=== PATIENT | male | born 1930 | race Caucasian/White ===

== ENCOUNTER 2020-11-07 11:42 | Emergency (ER) | payer MEDICARE, BC ==
[~2020-11-07] VITALS: Ht 175.3 cm; Wt 108.9 kg
[2020-11-07] MEDS ORDERED: EZET-57 PO (11:54)
--- NOTE | 2020-11-07 11:55 | NUR ---
[facility]IBRA TO ER BED 10. AAOX4. NOT IN RESP DISTRESS. BROUGHT IN FOR R SHOULDER INJURY S/P FALL. PT SLIPPED AND LANDED ON HIS R SIDE. NOTED DEFORMITY ON R SHOULDER WITH ABRASSION AND NOTED ABRASSION ON HIS R ARM. ROM LIMITED D/T PAIN WHEN MOVING. RADIAL PULSE APPRECIATED. SENSATION ARE PRESENT AND EQUAL. MD AT BEDSIDE FOR EVAL. ORDERS RECEIVED, NOTED AND CARRIED OUT.
[2020-11-07] MEDS ORDERED: PROPOFOL 20 ML IV ONE (11:59)
[2020-11-07] MEDS ORDERED: PROPOFOL 200 MG/20 ML VIAL IV ONE (12:00)
--- NOTE | 2020-11-07 12:00 | NUR ---
CONSENT FOR CLOSE REDUCTION ON RIGHT SHOULDER W/ MODERATE SEDATION OBTAINED FROM PT. PT'S SIGNED ON BEHALF OF THE PATIENT AT BEDSIDE D/T PATIENT IS UNABLE TO SIGN
--- NOTE | 2020-11-07 12:13 | NUR ---
TIMEOUT. MD AT BEDSIDE FOR RIGHT SHOULDER CLOSE REDUCTION WITH MODERATE SEDATION. RT AT BEDSIDE WELL
--- NOTE | 2020-11-07 12:14 | NUR ---
PROPOFOL 100MG IVP X 1
--- NOTE | 2020-11-07 12:15 | NUR ---
REDUCTION COMPLETED. SLING PLACED
--- NOTE | 2020-11-07 12:30 | NUR ---
PT IS AWAKE. ORIENTED X 4. NOT IN RESP DISTRESS. MD MADE AWARE
--- NOTE | 2020-11-07 13:18 | NUR ---
Patient discharged to home in stable condition. Written and verbal after care instructions given. Patient verbalizes understanding of instruction.IV removed. Catheter intact and site benign. Pressure and 4x4 applied to site. No bleeding noted. Pt ambulatory with a steady gait
[2020-11-07 14:30] VITALS: BP 137/92
== END 2020-11-07 13:18 | disposition home or self-care (01) ==
LOC: ER 11:42
DX: S43.101A Unspecified dislocation of right acromioclavicular joint, initial encounter (principal); S51.011A Laceration without foreign body of right elbow, initial encounter; E78.00 Pure hypercholesterolemia, unspecified; Z79.899 Other long term (current) drug therapy; W01.0XXA Fall on same level from slipping, tripping and stumbling without subsequent striking against object, initial encounter; Y93.89 Activity, other specified; Y92.89 Other specified places as the place of occurrence of the external cause; Y99.8 Other external cause status
CPT/HCPCS: 23650; 73020 ×2; 99152; 99285; A6403; J2704; G0500